=== PATIENT | female | born 1965 | race Caucasian/White ===

== ENCOUNTER 2019-10-01 10:55 | Emergency (ER) | payer SELFPAY ==
[2019-10-01] MEDS: Cyclobenzaprine 10 MG Tab PO ONE (11:13)
[2019-10-01] MEDS: Ketorolac 60 MG/2 ML SDV IM ONE (11:14)
[2019-10-01] MEDS: Ketorolac 60 MG/2 ML SDV ONE (13:56)
--- NOTE | 2019-10-01 13:59 | CT ---
DATE OF SERVICE: 10/01/2019 CLINICAL DATA: Right Flank Pain Unenhanced abdomen and pelvic CT: Multislice acquisition through the abdomen and pelvis without IV or oral contrast was performed. No priors. There are atelectatic changes in the dependent portion of both lower lungs and in both lung bases. The heart size is normal. There is mild diffuse fatty infiltration of the liver. No focal hepatic lesions. The patient is status post cholecystectomy. No biliary duct dilation. The spleen appears normal. The pancreas appears normal. The right and left adrenals appear normal. The right and left kidneys appear normal. No nephrocalcinosis or nephrolithiasis. No hydronephrosis or hydroureter. No ureterolithiasis. Stomach is fluid-filled and mildly distended. There is a small amount of fluid within the bladder. It appears normal. No evidence of appendicitis. No free air. No free fluid. No dilated loops of bowel. No adenopathy. No aortic aneurysm. There is a small fat containing umbilical hernia. There are bilateral fat containing inguinal hernias. There is degenerative disc disease throughout the lumbar spine. There is grade 1 anterolisthesis of L5 and S1 and there is L5 spondylolysis. MTDD
[2019-10-01] MEDS: Cyclobenzaprine 10 MG Tab ONE (14:00)
[2019-10-01] MEDS: HYDROmorphone 2 MG/ML SDV ONE (14:02)
[2019-10-01] MEDS: HYDROmorphone 4 MG/ML Syringe SUBCUT ONE (14:02)
--- NOTE | 2019-10-01 16:19 | ER ---
HISTORY OF PRESENT ILLNESS: A 54-year-old lady here with complaints of right flank pain that started early today. She states she has not had any falls or injuries. She has not been sick recently. She has not been running a fever. She tells me that they did a long car trip yesterday traveling into this area, which was an all day trip. She does have some history of back issues. She is pointing in the mid back area involving the paraspinal muscles on the right side of the upper lumbar or lower T-spine area radiating around almost to the lower right quadrant of the abdomen, but not quite. The patient denies any history of a pain like this. She has not been coughing. She denies any problems with nausea, vomiting, or diarrhea. She rates her pain at 8/10. She does have a TENS unit on that she got from a friend which she states is helpful and she did take an Ultram tablet again borrowed from a friend. OBJECTIVE: GENERAL APPEARANCE: The patient is awake and alert. She is in a standing position, holding her right hand behind her back in a guarded fashion. VITAL SIGNS: Reviewed. She is afebrile. Blood pressure 146/79, pulse 77, O2 sats are 98%, respirations 16. MUSCULOSKELETAL: Examining the patient's torso reveals the skin is intact without any swelling or discoloration. There is no CVA tenderness noted with percussion. There is tenderness with even light touch involving the upper lumbar spine on the right side radiating out to the flank area. ABDOMEN: Soft, nontender. LUNGS: Clear. CARDIAC: Heart sounds distinct without murmurs. SKIN: Warm and dry. INITIAL TREATMENT: Toradol 60 mg was given IM and the patient was given Flexeril 10 mg p.o. LABS: Include a CBC showing an elevated white count of 17.9, neutrophils are also up. Comprehensive metabolic panel is unremarkable and the urine is clear. After monitoring the patient for about 45 minutes, her pain is now down to a 4/10 at rest and she is able to rest comfortably, but when she stands and moves the pain is still severe. This prompted a CT of the abdomen and pelvis, which showed degenerative disk disease throughout the lumbar spine. Otherwise, really no acute changes. Nothing that would explain the patient's elevated white count. DIAGNOSIS: Back strain/muscle spasm. TREATMENT PLAN: The patient was given Dilaudid 1 mg subcu and within about 30 minutes, her pain had significantly improved. She will be discharged. She is to take ibuprofen alternating with Tylenol every 3-4 hours as needed. She is to apply hot ice packs for the next day or so and then start alternating with heat. I will put her on Flexeril for a few days. Activity should be light duty. She can continue wearing the TENS unit if it is helping and recheck is p.r.n. JAQUELINE/BRENDA /[id number]
== END 2019-10-01 14:32 | disposition home or self-care (01) ==
LOC: LB.ED 10:55
DX: S39.012A Strain of muscle, fascia and tendon of lower back, initial encounter (principal); X58.XXXA Exposure to other specified factors, initial encounter
CPT/HCPCS: 36415; 74176; 80053; 81001; 85025; 96372; 99284; A9270; J1170; J1885